=== PATIENT | male | born 1960 | race Caucasian/White ===

== ENCOUNTER 2018-10-06 15:06 | Outpatient (CLI) | payer OTHER ==
--- NOTE | 2018-10-06 15:39 | RAD ---
TWO VIEWS OF THE CHEST: 10/06/18 COMPARISON: None. HISTORY: Pulmonary infiltrate secondary to aspiration of food contents. FINDINGS: Two views of the chest shows a normal sized cardiomediastinal silhouette. Consolidation is seen in th e right lower lobe consistent with pneumonia. No pleural effusion is seen. There is a 1.3 cm area of nodularity projecting over the mid portion of the right thorax. IMPRESSION: 1. Right lower lobe pneumonia. 2. Right sided pulmonary nodule. A CT of the chest with contrast is recommended for further eval uation. POS: KENIA
== END 2018-10-06 15:07 | disposition home or self-care (01) ==
LOC: NAV RAD 15:06
PROVIDERS: ATTEND Family Medicine
DX: J69.0 Pneumonitis due to inhalation of food and vomit (principal); R91.1 Solitary pulmonary nodule
CPT/HCPCS: 71046

== ENCOUNTER 2018-10-16 00:45 | Emergency (ER) | payer SELFPAY ==
[2018-10-16] MEDS ORDERED: Ketorolac Tromethamine 30 MG/ML VIAL ONE (01:18)
[2018-10-16 01:33] LABS: #Basophils 0.2 thou/uL (0.0-0.2); #Eosinphils 0.3 thou/uL (0.0-0.7); #Lymphocytes 2.2 thou/uL (1.20-3.40); #Monocytes 0.8 thou/uL (0.11-0.59); #Neutrophils 6.2 thou/uL (1.40-6.50); %Basophils 1.9 % (0.0-1.0); %Eosinophils 3.6 % (0.0-10.0); %Lymphocytes 22.3 % (21.0-51.0); %Monocytes 8.4 % (0.0-10.0); %Neutrophils 63.8 % (42.0-75.0); Hemoglobin 15.6 g/dL (14.0-18.0); Mean Corpuscular HGB CONC 32.3 g/dL (32.0-36.0); Mean Corpuscular Hemoglobin 27.7 pg (27.0-31.0); Mean Corpuscular Volume 85.7 fL (78.0-98.0); Mean Platelet Volume 9.8 fL (7.4-10.4); Platelet Count 257 thou/uL (130-400); RBC Distribution Width 11.7 % (11.5-14.5); Red Blood Cell (RBC) Count 5.63 mill/uL (4.70-6.10); White Blood Cell (WBC) Count 9.7 thou/uL (4.8-10.8)
[2018-10-16 01:44] LABS: Anion Gap 13 mmol/L (10-20); BUN (Urea Nitrogen) 9 mg/dL (8.4-25.7); Calc. Creatinine Clearance 0 mL/min (70-130); Calcium 9.8 mg/dL (7.8-10.44); Carbon Dioxide 23 mmol/L (22-29); Chloride 102 mmol/L (98-107); Estimated GFR-MDRD Greater than 90; Glucose 111 mg/dL (70-105); Potassium 3.8 mmol/L (3.5-5.1); Sodium 134 mmol/L (136-145)
[2018-10-16 02:02] LABS: Bilirubin Negative (Negative); Blood, Urine Negative (Negative); Clarity Clear (Clear); Glucose, Urine (Dipstick) Negative (Negative); Leukocyte Negative (Negative); Nitrite Negative (Negative); Protein, Urine (Dipstick) Negative (Neg-Trace); Urobilinogen 0.2 mg/dL (0.2-1.0); pH, Urine 6.5 (5.0-9.0)
== END 2018-10-16 02:15 | disposition home or self-care (01) ==
LOC: NAV ERS 00:45
DX: M54.5 Low back pain (principal); F41.9 Anxiety disorder, unspecified; F32.9 Major depressive disorder, single episode, unspecified; F17.210 Nicotine dependence, cigarettes, uncomplicated; Z87.442 Personal history of urinary calculi
CPT/HCPCS: 36415; 80048; 81003; 85025; 85379; 96372; J1885

== ENCOUNTER 2018-12-02 08:52 | Emergency (ER) | payer SELFPAY ==
[2018-12-02] MEDS ORDERED: Iopamidol 370 76% 100 ML VIAL ONE (09:00)
[2018-12-02] MEDS ORDERED: Sodium Chloride 0.9% 1,000 ML ONE (09:26)
[2018-12-02 09:49] LABS: Mean Corpuscular HGB CONC 33.4 g/dL (32.0-36.0); Mean Corpuscular Hemoglobin 28.2 pg (27.0-31.0); Mean Corpuscular Volume 84.5 fL (78.0-98.0); Mean Platelet Volume 9.2 fL (7.4-10.4); Platelet Count 320 thou/uL (130-400); RBC Distribution Width 12.9 % (11.5-14.5); Red Blood Cell (RBC) Count 4.96 mill/uL (4.70-6.10); White Blood Cell (WBC) Count 15.8 thou/uL (4.8-10.8)
--- NOTE | 2018-12-02 09:53 | RAD ---
RADIOGRAPH CHEST 1 VIEW: Date: 12-02-18 Time: 9:26 a.m. HISTORY: 58-year-old male with dyspnea. COMPARISON: 10-06-18 FINDINGS: There is a new finding of dense, severe opacification of the lower three-fourths of the right lung. N o cardiomegaly. Mild pulmonary venous prominence. No consolidation or pulmonary alveolar edema visual ized in the contralateral left lung. No pneumothorax. IMPRESSION: Severe opacification of the majority of the right lung, probably due to a large right pleural effusio n and underlying severe atelectasis. ADIS POS: HÉCTOR
[2018-12-02 09:54] LABS: Band 5 % (5-11); Eosinophils 2 % (0-10); Lymphocytes 9 % (21-51); MDiff Complete? YES; Monocytes 8 % (0-10); Neutrophil 76 % (42-75); Platelet Morphology Comment Appears Adequate; RBC Morphology Normal
[2018-12-02 09:55] LABS: ALT (SGPT) 41 U/L (8-55); AST (SGOT) 18 U/L (5-34); Albumin 3.5 g/dL (3.5-5.0); Alkaline Phosphatase 129 U/L (40-150); Anion Gap 15 mmol/L (10-20); BUN (Urea Nitrogen) 10 mg/dL (8.4-25.7); Bilirubin, Total 0.6 mg/dL (0.2-1.2); Calc. Creatinine Clearance 0 mL/min (70-130); Calcium 10.6 mg/dL (7.8-10.44); Carbon Dioxide 23 mmol/L (22-29); Chloride 94 mmol/L (98-107); Estimated GFR-MDRD Greater than 90; Globulin 3.1 g/dL (2.4-3.5); Glucose 119 mg/dL (70-105); Potassium 4.3 mmol/L (3.5-5.1); Protein, Total 6.6 g/dL (6.0-8.3); Sodium 128 mmol/L (136-145)
[2018-12-02] MEDS ORDERED: cefTRIAXone\\ROCEPHIN 1 GM VIAL ONE (10:01)
[2018-12-02] MEDS ORDERED: Sodium Chloride 0.9% 100 ML ONE ×2 (10:02→10:16)
[2018-12-02] MEDS ORDERED: Piperacillin/Tazobactam 4.5 GM VIAL ONE (10:15)
[2018-12-02 10:26] LABS: INR-International Normal Ratio 1.1; PTT 26.3 SEC (22.9-36.1); Prothrombin Time 13.9 SEC (12.0-14.7)
--- NOTE | 2018-12-02 11:32 | CT ---
CT THORAX WITH CONTRAST: DATE: 12/02/18 HISTORY: 58-year-old male with dyspnea and large right pleural effusion. FINDINGS: There is malignant mass throughout the right hilum causing occlusion of the right upper lobe bronchus and occlusion of the right lower lobe bronchus, resulting in total atelectasis of the right lower lo be, but apparently aeration of much of the right upper lobe. The neoplastic tumor mass is inseparable from subcarinal mass which is consistent with malignant mediastinal lymphadenopathy, which crosses t he midline to the left. Furthermore, there are abnormally enlarged contralateral left hilar multiple lymph nodes that are also suspicious for malignancy, although not as large as a right hilar confluent mass. There are malignant mediastinal lymph nodes more superiorly, including in the prevascular spac e to the left of the aortic arch. In the right pretracheal space includes a 3 x 2 x 2.5 cm enlarged m alignant mediastinal lymph node. More superiorly, there is a 2 x 2.5 x 2.5 cm malignant lymph node to the right of the upper esophagus and posterior to the trachea. There is a large right pleural effusion which extends from the base to the apex. Within an aerated po rtion of lung, which is either right middle lobe or anterior segment of right upper lobe, there is a satellite pulmonary nodule measuring approximately 1.8 x 1.0 x 1.8 cm. The left lung has no pulmonary edema or consolidation. No left-sided pleural effusion. There is a small patch of tree-in-bud nodula rity in the left upper lobe (axial images 16 and 17 of 75, series 3; coronal image 80 of 175, series 601). In the lateral basilar left lower lobe, there is a 0.7 x 0.6 x 0.7 cm noncalcified pulmonary no dule close to the lateral pleural surface (axial image 45 of 75, series 3; coronal image 119 of 175, series 601). No cardiomegaly. No thoracic aortic aneurysm. Liver has patchy, slightly heterogeneous attenuation. T here are multiple mildly to moderately enlarged lymph nodes around the celiac axis, chen hepatis, an d upper aortocaval lymph nodes, which appear suspicious for malignant involvement. No splenomegaly. S everal osteolytic lesions in the thoracic spine representing metastases. IMPRESSION: 1. Evidence for Stage IV lung cancer. 2. Right hilar and perihilar main tumor mass obstructing right lower lobe bronchus and right upper l obe bronchus. 3. Associated right lower lobe total atelectasis. 4. Large right pleural effusion. 5. Malignant mediastinal lymphadenopathy which crosses midline, and probably malignant contralateral left hilar lymphadenopathy. 6. 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 7. Suspicious for intra-abdominal malignant metastatic lymphadenopathy. 8. Slightly heterogeneous attenuation of the liver. Possibilities include heterogeneous fatty infilt ration versus other types of infiltrative hepatocellular process, incompletely evaluated. 9. Satellite right lung nodule, suspicious for metastasis. 10. Small nonspecific left lower lobe lung nodule, nonspecific, but possibly metastatic. CODE T. JN R
== END 2018-12-02 11:15 | disposition short-term general hospital (02) ==
LOC: NAV ERS 08:52
DX: J90 Pleural effusion, not elsewhere classified (principal); D72.829 Elevated white blood cell count, unspecified; F41.9 Anxiety disorder, unspecified; F17.210 Nicotine dependence, cigarettes, uncomplicated; Z79.899 Other long term (current) drug therapy
CPT/HCPCS: 36415; 71045; 71260; 80053; 83605; 84484; 85025; 85610; 85730; 87040; 93005; 96361; 96365; 96368; J0696; J2543; J7050; Q9967